=== PATIENT | female | born 1950 | race Caucasian/White ===

== ENCOUNTER → 2016-10-27 | Outpatient (CLI) | payer MEDICARE ==
[~2016-10-27] MED LIST: LEVOCETIRIZINE D5 MG PO; LEVOTHYROXINE50 MCG PO; LOSARTAN POTASS50 MG PO; MONTELUKAST SOD10 MG PO; NAPROSYN500 MG PO; NORCO 7.5-3251 EACH PO; OMEPRAZOLE20 M1 PO; ZEBETA 5 MG TAB5 MG PO
[2016-10-27 09:54] LABS: HEMOGLOBIN 12.9 gm/dl (12.3-15.3); RED BLOOD COUNT 4.56 M/UL (4.00-5.10); WHITE BLOOD COUNT 5.6 K/UL (4.5-11.0)
[2016-10-27 10:11] LABS: BUN/CREATININE RATIO 24 (0-10)
== END ==
LOC: OPSV2 09:27
PROVIDERS: Obstetrics & Gynecology
DX: Z01.810 Encounter for preprocedural cardiovascular examination (principal); Z01.812 Encounter for preprocedural laboratory examination; N83.201 Unspecified ovarian cyst, right side; Z88.5 Allergy status to narcotic agent; I10 Essential (primary) hypertension
CPT/HCPCS: 71020; 80048; 81001; 85025; 93005

== ENCOUNTER 2016-11-03 09:00 | Day surgery (SDC) | payer MEDICARE ==
[~2016-11-03] VITALS: Ht 160 cm; Wt 94.3 kg
[2016-11-03] MEDS ORDERED: OMEPRAZOLE20 M1 PO (10:06)
[2016-11-03] MEDS ORDERED: LEVOCETIRIZINE D5 MG PO (10:06)
[2016-11-03] MEDS ORDERED: LOSARTAN POTASS50 MG PO (10:07)
[2016-11-03] MEDS ORDERED: ZEBETA 5 MG TAB5 MG PO (10:08)
[2016-11-03] MEDS ORDERED: MONTELUKAST SOD10 MG PO (10:09)
[2016-11-03] MEDS ORDERED: LEVOTHYROXINE50 MCG PO (10:09)
[2016-11-04 06:56] LABS: HEMOGLOBIN 11.3 gm/dl (12.3-15.3)
[2016-11-04] MEDS ORDERED: NORCO 7.5-3251 EACH PO (16:33)
[2016-11-04] MEDS ORDERED: NAPROSYN500 MG PO (16:34)
== END 2016-11-04 17:06 | disposition home or self-care (01) ==
LOC: OR 09:00 → EDBD 10:15 → OR 10:15 → M/S 16:26 → OR 11-04 17:06
PROVIDERS: Obstetrics & Gynecology
PROC: 0TSD0ZZ Reposition Urethra, Open Approach (ICD-10-PCS; 2016-11-03)
PROC: 0UBM0ZX Excision of Vulva, Open Approach, Diagnostic (ICD-10-PCS; 2016-11-03)
PROC: 0UT94ZZ Resection of Uterus, Percutaneous Endoscopic Approach (ICD-10-PCS; principal; 2016-11-03 10:30)
PROC: 0UTC4ZZ Resection of Cervix, Percutaneous Endoscopic Approach (ICD-10-PCS; 2016-11-03 10:30)
PROC: 0UT24ZZ Resection of Bilateral Ovaries, Percutaneous Endoscopic Approach (ICD-10-PCS; 2016-11-03 10:30)
PROC: 0UT74ZZ Resection of Bilateral Fallopian Tubes, Percutaneous Endoscopic Approach (ICD-10-PCS; 2016-11-03 10:30)
DX: D25.1 Intramural leiomyoma of uterus (principal); D39.11 Neoplasm of uncertain behavior of right ovary; N72 Inflammatory disease of cervix uteri; N83.8 Other noninflammatory disorders of ovary, fallopian tube and broad ligament; N83.202 Unspecified ovarian cyst, left side; E03.9 Hypothyroidism, unspecified; I10 Essential (primary) hypertension; K21.9 Gastro-esophageal reflux disease without esophagitis; E66.9 Obesity, unspecified; R73.03 Prediabetes; Z88.8 Allergy status to other drugs, medicaments and biological substances; Z98.51 Tubal ligation status; Z87.440 Personal history of urinary (tract) infections; Z79.899 Other long term (current) drug therapy
CPT/HCPCS: 36415; 82962; 85014; 85018; C1769; C1771; J0690; J1100; J2274; J2405; J2710; J2795; J3010; J7030; J7120